=== PATIENT | male | born 1975 | race Caucasian/White ===

== ENCOUNTER 2023-12-31 13:16 | Outpatient (CLI) | payer OTHER | END 2023-12-31 13:17 | disposition home or self-care (01) | LOC: CSHULT 13:16 | PROVIDERS: ATTEND Internal Medicine Hematology & Oncology | DX: Z01.818 Encounter for other preprocedural examination (principal); C81.01 Nodular lymphocyte predominant Hodgkin lymphoma, lymph nodes of head, face, and neck; I42.7 Cardiomyopathy due to drug and external agent; Z79.899 Other long term (current) drug therapy; I51.7 Cardiomegaly; I51.89 Other ill-defined heart diseases | CPT/HCPCS: 93306 ==

== ENCOUNTER 2024-03-04 14:56 | Outpatient (CLI) | payer OTHER | END 2024-03-04 14:57 | disposition home or self-care (01) | LOC: CSHULT 14:56 | PROVIDERS: ATTEND Internal Medicine Hematology & Oncology | DX: C81.01 Nodular lymphocyte predominant Hodgkin lymphoma, lymph nodes of head, face, and neck (principal); I42.7 Cardiomyopathy due to drug and external agent; Z79.899 Other long term (current) drug therapy; I08.1 Rheumatic disorders of both mitral and tricuspid valves | CPT/HCPCS: 93306 ==